=== PATIENT | male | born 1980 | race Caucasian/White ===

== ENCOUNTER 2019-03-14 08:28 | Day surgery (SDC) | payer BC, SELFPAY ==
--- NOTE | 2019-03-13 08:37 | PM.HPUD ---
H&P update H&P Update: DATE OF SURGERY/PROCEDURE: 03/13/19 DATE H&P PERFORMED: 03/13/19 PLANNED PROCEDURE: Operation Date: 03/14/19 11:45 Proposed Procedures p Knee Arthroscopy with medial meniscectomy 58218 M17.11(Right) - Wei Marvin MD Full H&P HPI: PRIMARY INDICATION/DIAGNOSIS FOR SURGICAL PROCEDURE: Medial meniscal tear PLANNED PROCEDURE: . Right medial meniscectomy, other indicated procedures. HPI: The patient is a 38-year-old male who presents with complaints of pain in his right knee. He describes originally injuring his knee 2 years ago. He describes the pain moderate in intensity he describes associated giving way catching and locking. He underwent previous knee arthroscopy in April 2014 with persistent symptoms. He reportedly was scheduled for a second arthroscopy past year which was canceled due to changes in his insurance. He is tried corticosteroid injections and anti-inflammatories without improvement. ROS: ROS: Patient denies any fevers or chills. He has no chest pain shortness of breath or palpitations. He has no cough or congestion. He has no numbness or tingling in his lower extremities. Medications/Allergies: Current Medications: Prilosec Pertinent Exam Findings: OTHER PERTINENT EXAM FINDINGS: HEAD: Normocephalic/atraumatic. NECK: Soft supple nontender. HEART: Normal heart sounds, regular rhythm. CHEST: Clear to auscultation. ABDOMEN: Soft nontender nondistended. On examination the patient's right knee he has medial joint line tenderness. His motion is from 0 to 120 degrees. His cruciate collateral ligaments are stable. Pertinent Data: PERTINENT DATA: An MRI report of the right knee was reviewed dated 07/13/2018. The patient has full-thickness cartilage focal areas of loss over the medial femoral condyle. He has severe patellofemoral arthritis. He has a abnormal appearance of the medial meniscus consistent with previous meniscectomy or progressive degenerative tearing. A&P Assessment and plan (1) Osteoarthritis of right knee: The patient has been counseled as to the limited expectation with arthroscopy for osteoarthritis. I told him in some occasions for focal defects a microfracture chondroplasty could be entertained. Oftentimes patellofemoral arthritis treatments are symptomatic. Status: Acute Code(s): M17.11 - Unilateral primary osteoarthritis, right knee (2) Status post medial meniscectomy of right knee: I do not have previous operative reports. The possibility of continued meniscal tearing cannot be excluded. We will proceed with diagnostic arthroscopy to better evaluate the meniscus and offer potential treatment. Previous indications and risks have been discussed and the patient understands these and agrees to proceed Status: Acute Code(s): Z98.890 - Other specified postprocedural states
[2019-03-13 15:13] VITALS: BMI 36.3
[2019-03-14] VITALS (8 sets, daily range): BP systolic 121–164; BP diastolic 75–91; PULSE 76–98; RESP 14–19; TEMP 36.2–36.6; O2SAT 95–98
[2019-03-14] MEDS: sodium chloride 0.9% 1,000 ML 30 ML IV (09:59)
--- NOTE | 2019-03-14 10:23 | ANES.PREANES ---
Pre-Anesthetic Assessment Pre-Anesthetic Assessment: Height/Weight: Height 1.92 m Weight 133.81 kg Temp Pulse Resp BP Pulse Ox 97.6 F 98 18 148/91 95 03/14/19 09:28 03/14/19 09:28 03/14/19 09:28 03/14/19 09:28 03/14/19 09:28 Preop Diagnosis: Right medial meniscal tear, osteoarthritis Proposed Procedure: Operation Date: 03/14/19 09:35 Proposed Procedures p Knee Arthroscopy with medial meniscectomy 80591 M17.11(Right) - Wei Marvin MD Familial anesthetic complications: none Was Beta Andrei taken within 24 hours: N/A Social: Social History: Alcohol (occasional) and No tobacco Comment: chews tobacco Exam: Pre-Anes Outpt Exam: alert, oriented x 3, clear to auscultation bilaterally and regular rate & rhythm Airway: Submandibular: WNL Cervical ROM: WNL MP: 1 Dentition: Full History/ROS: No significant complaints Pulmonary: Pulmonary: Sleep apnea CV/HEM: CV/HEM: None reported : : None reported Hepatic: Hepatic: None reported GI: GI: GERD (prilosec) Metabolic: Metabolic: Morbid obesity Musc/skel: Musc/skel: None reported Neuropsych: Neuropsych: None reported Anesthetic Plan: ASA status: II Anesthesia: General Risk of > 500 ml blood loss (7ml/kg in children): No Meds/Allergies Current Medications: Current Medications Generic Name Dose Route Start Last Admin Trade Name Freq PRN Reason Stop Dose Admin Sodium Chloride 1,000 mls @ 30 ml s/hr 03/14/19 09:15 03/14/19 09:59 Sodium Chloride 0.9% IV 03/15/19 09:14 30 mls/hr .Q24H COLEEN Administration Data Anesthesia Cardiac Studies: No Data to Display
--- NOTE | 2019-03-14 10:35 | PM.HPUD ---
H&P update H&P Update: DATE OF SURGERY/PROCEDURE: 03/14/19 DATE H&P PERFORMED: 03/13/19 H&P UPDATE INFORMATION: H&P completed within last 30 days PREOP DIAGNOSIS: Degenerative joint disease right knee, abnormal medial meniscal PRIMARY INDICATION FOR PROCEDURE: Continued pain right knee with abnormal medial meniscus PLANNED PROCEDURE: Operation Date: 03/14/19 09:35 Proposed Procedures p Knee Arthroscopy with medial meniscectomy 40625 M17.11(Right) - Wei Marvin MD Full H&P Medications/Allergies: Current Medications: Current Medications Generic Name Dose Route Start Last Admin Trade Name Freq PRN Reason Stop Dose Admin Sodium Chloride 1,000 mls @ 30 ml s/hr 03/14/19 09:15 03/14/19 09:59 Sodium Chloride 0.9% IV 03/15/19 09:14 30 mls/hr .Q24H COLEEN Administration
[2019-03-14] MEDS: morphine 4 mg/mL SDV 1 mL 8 MG IM (11:10)
--- NOTE | 2019-03-14 12:16 | SUR.PHASEI ---
1204- RECEIVED PATIENT IN PACU FROM OR VIA [facility]. RESP ARE EVEN AND NONLABORED. SIMPLE MASK APPLIED AT 6LPM, ORAL AIRWAY IN PLACE. SAT 98%. HE IS LETHARGIC. RLE IS WARM TO TOUCH WITH PPP. DRESSING DRY AND INTACT. NO S/S PAIN OR NAUSEA
--- NOTE | 2019-03-14 12:19 | SUR.PHASEI ---
1219- ORAL AIRWAY OUT, SIMPLE MASK AT 6LPM, SAT 97%
--- NOTE | 2019-03-14 12:24 | P.OP_ITS ---
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 There was marked thinning of the cartilage and exposed areas of subchondral bone. There is unstable peripheral flaps and fissures. Over the trochlea there was a large defect involving the majority of the trochlea with body exposed subchondral bone and unstable peripheral flaps and fissures. The lateral compartment was generally intact. Multiple small loose bodies were identified. Condition: stable Disposition: PACU Procedure: The patient was taken to the operating room and given 2 g of Ancef. He was given a general anesthesia. His knee was prepped and infiltrated with 30 cc of 0.5% Marcaine with epi and 10 mg of morphine. The knee was then prepped and draped in the usual fashion. The knee was entered through the standard inferior medial and inferior lateral portal. The diagnostic portion of the arthroscopy was performed. Initially multiple loose bodies were removed with the incisor shaver. Attention was then focused on the medial meniscus which was probed and found to be stable. Attention was then focused on the medial femoral condyle. Utilizing an incisor shaver unstable flaps and fissures were removed from the periphery of the exposed defect. A [employer] Werewolf probe was then used to debride the base and margins leaving the previously area of large area of exposed previously stable. Attention was then focused on the trochlea. There was dense of central loss there with exposed subchondral bone that did not particular benefit from debridement but there was a rim of unstable tissue peripherally consisting of flaps and fissures were abraded back with the incisor shaver and [employer] Werewolf probe. There is a small central area about the patella which was debrided with the werewolf as well with much less ext ensive cartilage loss identified there. The knee was irrigated with saline. Portals were closed with 3-0 Prolene. Sterile dressings were applied. The patient was extubated and taken recovery room in stable condition.
[2019-03-14] MEDS: oxyCODONE 5 mg IR Tab/Cap PO (13:04)
--- NOTE | 2019-03-14 14:23 | SUR.PHASEII ---
PATIENT IS DRESSED AND WAITING FOR CRUTCHES
== END 2019-03-14 15:00 | disposition home or self-care (01) ==
PROVIDERS: PCP Nurse Practitioner Family; Visit Provider Orthopaedic Surgery
PROC: (CPT 29870; principal; 2019-03-14 09:35)
DX: M17.11 Unilateral primary osteoarthritis, right knee (principal); F17.221 Nicotine dependence, chewing tobacco, in remission; G47.30 Sleep apnea, unspecified; E66.01 Morbid (severe) obesity due to excess calories; Z68.36 Body mass index [BMI] 36.0-36.9, adult
CPT/HCPCS: 29877; 12345; J0330; J0690; J1100; J2001; J2270; J2405; J2704; J3010; J3490; J7030

== ENCOUNTER 2021-01-30 15:28 | Emergency (ER) | payer OTHER, SELFPAY ==
[2021-01-30 15:43] VITALS: BP 135/81; PULSE 75; RESP 16; TEMP 36.4; O2SAT 97
[2021-01-30 20:12] LABS: Basophils # 0.1 10^3/uL (0.0-0.1); Basophils % 0.9 %; Eosinophils # 0.2 10^3/uL (0.0-0.8); Eosinophils % 3.1 %; Hematocrit 44.4 % (42.0-52.0); Hemoglobin 15.3 g/dL (11.7-16.6); Lymphocytes # 3.2 10^3/uL (0.8-4.8); Lymphocytes % 42.2 %; Mean Corpuscular HGB Conc 34.5 g/dL (30.0-36.0); Mean Corpuscular Hemoglobin 29.8 pg (28.0-34.0); Mean Corpuscular Volume 86.4 fl (80-94); Mean Platelet Volume 11.5 fL (7.4-10.4); Monocytes # 0.5 10^3/uL (0.2-0.9); Monocytes % 6.6 %; Neutrophils # 3.51 10^3/uL (1.8-7.7); Neutrophils % 47.1 %; Nucleated Red Blood Cells % 0 %; Platelet Count 184 10^3/cmm (130-400); Red Blood Count 5.14 10^6/uL (4.1-5.3); Red Cell Distribution Width 12.1 % (12.1-15.1); White Blood Count 7.5 10^3/uL (4.0-10.0)
[2021-01-30 20:25] LABS: Alanine Aminotransferase 55 U/L (0-41); Albumin Level 4.3 g/dL (3.5-5.2); Alkaline Phosphatase 77 IU/L (40-130); Anion Gap 18.3 (5-19); Aspartate Amino Transferase 36 U/L (0-40); Blood Urea Nitrogen 13 mg/dL (6-20); Carbon Dioxide 21 mmol/L (22-29); Chloride 105 mmol/L (98-107); Globulin 2.1 g/dL (1.3-4.6); Glomerular Filtration Rate 82.8 mL/min (90-130); Glucose 132 mg/dL (65-115); Lipase 21 U/L (13-60); Osmolality Calculated 292 mOsm/kg (285-295); Potassium 4.3 mmol/L (3.5-5.1); Sodium 140 mmol/L (136-145); Total Bilirubin 0.3 mg/dL (0.15-1.2); Total Protein 6.4 g/dL (6.6-8.7)
--- NOTE | 2021-01-30 20:56 | CTR_ITS ---
PROCEDURE INFORMATION: Exam: CT Abdomen And Pelvis With Contrast Exam date and time: 01/30/2021 8:56 PM Age: 40 years old Clinical indication: Abdominal pain; Localized; Right lower quadrant (rlq); Additional info: Rlq, rmq pain, dx with inlammed appendix at another er today, iv and oral per surgeon TECHNIQUE: Imaging protocol: Computed tomography of the abdomen and pelvis with contrast. Radiation optimization: All CT scans at this facility use at least one of these dose optimization techniques: automated exposure control; mA and/or kV adjustment per patient size (includes targeted exams where dose is matched to clinical indication); or iterative reconstruction. Contrast material: OMNI 300; Contrast volume: 95 ml; Contrast route: INTRAVENOUS (IV); COMPARISON: CT Abdomen/Pelvis Renal [id number] 12/11/2018 7:22 PM RADIATION DOSE METRICS: Total DLP (mGy-cm): 2140.65 FINDINGS: Lungs: Continued very small right lower lobe calcified granuloma along the right hemidiaphragm. Heart: Continued cardiac prominence. Still no pericardial effusion. Liver: No definite hepatic steatosis. No enhancing liver mass. Gallbladder and bile ducts: Continued absence of the gallbladder suggesting a cholecystectomy. Still no biliary ductal dilatation. Pancreas: Continued slight fatty infiltration of the otherwise unremarkable pancreas. Spleen: Still no splenomegaly. Adrenal glands: Still no adrenal mass. Kidneys and ureters: Still no hydronephrosis or apparent renal mass. Stomach and bowel: No apparent interval disease of the GI tract. Appendix: Continued normal appendix. Intraperitoneal space: Still no free air. Vasculature: Continued slight calcific plaque in the iliac arteries. Still no aortic aneurysm. Lymph nodes: Continued enlarged periportal node lymph nodes. No interval enlarged nodes. Urinary bladder: Excreted contrast filling the nondistended bladder. No mass or suggestion of wall thickening. Reproductive: Continued slight prostatic calcifications. No prostatic enlargement. Bones/joints: Old compression fractures again evident. Continued slight degeneration of a few discs. Soft tissues: Continued minimal bilateral inguinal hernias containing fat. No acute soft tissue finding. CT/CT abdomen pelvis w con* [id number] IMPRESSION: 1. No acute findings. Specifically, no appendicitis. 2. Continued cardiac prominence. Stable periportal adenopathy, possibly related to the apparent cholecystectomy. Other findings detailed above.
--- NOTE | 2021-01-30 21:07 | W.ED.ABDPA2 ---
Documented by User: [email or web address] Mao 01/31/21 01:41 HPI - Abdominal Pain General: Chief Complaint: Abdominal Pain Stated Complaint: R LOWER ABD PAIN Time Seen by Provider: 01/30/21 20:50 History of Present Illness: HPI narrative: Patient presents with complaint of right lower quadrant right middle quadrant pain today. Sudden onset while he was standing talking some he. Was seen in the ER at [facility] was diagnosed with inflamed appendix and increase amount of stool. Patient went saw his PCP ER at least talk to them and they recommend he come to the ER. Patient has had chills denies fever nausea and vomiting does have pain with movement right lower quadrant denies any injury. MD elicited complaint: abdominal pain Onset (ago): hour(s) Pain Consistency: constant Location: RUQ and RLQ Severity: mild Quality: stabbing and aching Radiation: RUQ Migration to: no migration Exacerbating factors: movement Relieving factors: nothing Associated Symptoms: Reports chills; Denies nausea and vomiting Review of Systems Const: Reports: chills Eyes: Denies: change in vision or blurry vision ENMT: Denies: throat pain or nasal congestion Card: Denies: chest pain or dyspnea on exertion Resp: Denies: dyspnea, productive cough or non-productive cough GI: Reports: abdominal pain; Denies: nausea or vomiting : Denies: difficulty urinating Musc: Denies: extremity pain Skin/Breast: Denies: rash Neuro: Denies: headache(s) Psych: Denies: anxiety or depression Loy/Lymph: Denies: easy bruising Physical Exam Const: COMMON NORMALS: no acute distress, average body habitus and patient oriented x3 HENMT: COMMON NORMALS: normocephalic HEAD & SCALP: normal to inspection and normocephalic FACE & SINUS: normal facial exam Eye: COMMON NORMALS: conjunctivae normal GENERAL EYE: appearance normal, both eyes and all related structures CONJUNCTIVA: Yes conjunctivae normal Neck/C-Spine: COMMON NORMALS: no JVD Chest: COMMONS NORMALS: normal inspection of the chest Resp: COMMON NORMALS: normal respiratory effort and clear to auscultation bilaterally AUSCULTATION: clear to auscultation bilaterally Cardio: COMMON NORMALS: no JVD, regular rate and regular rhythm RATE: regular rate RHYTHM: regular rhythm GI: INSPECTION: Yes normal to inspection AUSCULTATION: Yes Hypoactive bowel sounds present PALPATION: Yes Tenderness to palpation present (GI) (No rebound) Details: RLQ and RUQ Extremity: COMMON NORMALS: normal to inspection and full ROM Neuro: COMMON NORMALS: patient oriented x3 Course Vital Signs: Vital signs: Vital Signs Temperature 97.6 F 01/31/21 00:22 Pulse Rate 77 01/31/21 00:22 Respiratory Rate 16 01/31/21 00:22 Blood Pressure 140/67 01/31/21 00:22 Pulse Oximetry 98 01/31/21 00:22 MDM - Abdominal Pain MDM Narrative: Medical decision making narrative: Patient presents here with abdominal pain that started today while patient was working. Patient says he went to [facility] ER had a CT done was told that he had an inflamed appendix and was was sent home with a follow-up for PCP. Patient not placed on any medications. Patient presents here being sent by his PCP for work-up for acute appendectomy.. Patient's labs are presentation not consistent with appendicitis, Dr. Walls is here in the ER and he went and saw the patient, Dr. Zamora also called ER provider at [facility] and got the results of CT which showed enlarged liver but no appendix inflammation. And asked that we get a CT with oral contrast and IV contrast and notify him the results. Evaluation of CT and labs does not show that there is no acute appendicitis going on but constipation. Patient was given prescription for laxative discussed diet changes and patient is to follow-up with primary care provider Lab Data: Labs: Lab Results 01/30/21 01/30/21 01/30/21 19:59 19:59 22:07 WBC 7.5 10^3/uL 10^3/ uL (4.0-10.0) RBC 5.14 10^6/uL 10^6 /uL (4.1-5.3) Hgb 15.3 g/dL g/dL (11.7-16.6) Hct 44.4 % % (42.0-52.0) MCV 86.4 fl fl (80-94) MCH 29.8 pg pg (28.0-34.0) MCHC 34.5 g/dL g/dL (30.0-36.0) RDW 12.1 % % (12.1-15.1) Plt Count 184 10^3/cmm 10^3 /cmm (130-400) MPV 11.5 fL H fL (7.4-10.4) Neut % (Auto) 47.1 % % Lymph % (Auto) 42.2 % % [place] % (Auto) 6.6 % % Eos % (Auto) 3.1 % % Baso % (Auto) 0.9 % % Neut # (Auto) 3.51 10^3/uL 10^3 /uL (1.8-7.7) Lymph # (Auto) 3.2 10^3/uL 10^3/ uL (0.8-4.8) [place] # (Auto) 0.5 10^3/uL 10^3/ uL (0.2-0.9) Eos # (Auto) 0.2 10^3/uL 10^3/ uL (0.0-0.8) Baso # (Auto) 0.1 10^3/uL 10^3/ uL (0.0-0.1) Nucleated RBC % (a uto) 0 % % Nucleated RBCs # 0.0 /100WBC /100W BC Sodium 140 mmol/L mmol/L (136-145) Potassium 4.3 mmol/L mmol/L (3.5-5.1) Chloride 105 mmol/L mmol/L (98-107) Carbon Dioxide 21 mmol/L L mmol/ L (22-29) Anion Gap 18.3 (5-19) BUN 13 mg/dL mg/dL (6-20) Creatinine 1.0 mg/dL mg/dL (0.7-1.2) GFR Calculation 82.8 mL/min L mL/ min (90-130) Glucose 132 mg/dL H mg/dL (65-115) Calculated Osmolal ity 292 mOsm/kg mOsm/ kg (285-295) Calcium 9.0 mg/dL mg/dL (8.5-10.5) Total Bilirubin 0.3 mg/dL mg/dL (0.15-1.2) AST 36 U/L U/L (0-40) ALT 55 U/L H U/L (0-41) Alkaline Phosphata se 77 IU/L IU/L (40-130) Total Protein 6.4 g/dL L g/dL (6.6-8.7) Albumin 4.3 g/dL g/dL (3.5-5.2) Globulin 2.1 g/dL g/dL (1.3-4.6) Lipase 21 U/L U/L (13-60) Urine Color Yellow (Yellow) Urine Appearance Clear (CLEAR) Urine pH 5 (5-7) Ur Specific Gravit y 1.025 (1.005-1.030) Urine Protein Neg (Negative) Urine Glucose (UA) Norm (Normal) Urine Ketones Negative (Negative) Urine Blood Neg (Negative) Urine Nitrate Negative (Negative) Urine Bilirubin Neg (Negative) Urine Urobilinogen 1 mg/dL H mg/dL (Negative) Ur Leukocyte Melanie ase Negative (Negative) Discharge Plan Discharge Patient Disposition: Home Clinical Impression: Constipation Qualifiers: Constipation type: slow transit constipation Qualified Code(s): K59.01 - Slow transit constipation Abdominal pain Qualifiers: Abdominal location: right upper quadrant Qualified Code(s): R10.11 - Right upper quadrant pain Condition: Stable Prescriptions: New magnesium citrate Solution 240 ml PO DAILY PRN (Reason: constipation) 3 Days Qty: 296 RF: 0 No Action Prilosec 2 mg PO DAILY RF: 0 oxycodone 5 mg capsule 5 mg PO Q4H Qty: 40 RF: 0 Discharge Orders: Discharge ED (Routine); Ordered 01/31/21 Ordered By: Herman Rhodes Referrals: Talia Trotter FNP [Primary Care Provider] - Discharge Diet: As Directed Discharge Activity: Resume usual activity Patient Instructions: Constipation (ED), Abdominal Pain (ED) Activity Restrictions/Additional Instructions: Follow-up with medical provider as directed. Take medications as prescribed. Return to the ER or your medical provider if condition worsens. Please read and understand discharge instructions. If any questions ask please. High-fiber diet daily. Increase activity and drinking water. Use [id number] stool softeners and magnesium citrate. Follow-up your family medical provider. Coding Level of Care Code ED Primary Special Educator for Chg Fwd Exam Comprehensive Documented by User: Juvencio Estrada, 01/31/21 01:54 HPI - Abdominal Pain General: Chief Complaint: Abdominal Pain Stated Complaint: R LOWER ABD PAIN Time Seen by Provider: 01/30/21 20:50 Course Vital Signs: Vital signs: Vital Signs Temperature 97.6 F 01/31/21 00:22 Pulse Rate 77 01/31/21 00:22 Respiratory Rate 16 01/31/21 00:22 Blood Pressure 140/67 01/31/21 00:22 Pulse Oximetry 98 01/31/21 00:22 MDM - Abdominal Pain MDM Narrative: Medical decision making narrative: This patient was originally seen by GOSIA Rodriguez. I agree with his history, evaluation, and treatment. Lab Data: Labs: Lab Results 01/30/21 01/30/21 01/30/21 19:59 19:59 22:07 WBC 7.5 10^3/uL 10^3/ uL (4.0-10.0) RBC 5.14 10^6/uL 10^6 /uL (4.1-5.3) Hgb 15.3 g/dL g/dL (11.7-16.6) Hct 44.4 % % (42.0-52.0) MCV 86.4 fl fl (80-94) MCH 29.8 pg pg (28.0-34.0) MCHC 34.5 g/dL g/dL (30.0-36.0) RDW 12.1 % % (12.1-15.1) Plt Count 184 10^3/cmm 10^3 /cmm (130-400) MPV 11.5 fL H fL (7.4-10.4) Neut % (Auto) 47.1 % % Lymph % (Auto) 42.2 % % [place] % (Auto) 6.6 % % Eos % (Auto) 3.1 % % Baso % (Auto) 0.9 % % Neut # (Auto) 3.51 10^3/uL 10^3 /uL (1.8-7.7) Lymph # (Auto) 3.2 10^3/uL 10^3/ uL (0.8-4.8) [place] # (Auto) 0.5 10^3/uL 10^3/ uL (0.2-0.9) Eos # (Auto) 0.2 10^3/uL 10^3/ uL (0.0-0.8) Baso # (Auto) 0.1 10^3/uL 10^3/ uL (0.0-0.1) Nucleated RBC % (a uto) 0 % % Nucleated RBCs # 0.0 /100WBC /100W BC Sodium 140 mmol/L mmol/L (136-145) Potassium 4.3 mmol/L mmol/L (3.5-5.1) Chloride 105 mmol/L mmol/L (98-107) Carbon Dioxide 21 mmol/L L mmol/ L (22-29) Anion Gap 18.3 (5-19) BUN 13 mg/dL mg/dL (6-20) Creatinine 1.0 mg/dL mg/dL (0.7-1.2) GFR Calculation 82.8 mL/min L mL/ min (90-130) Glucose 132 mg/dL H mg/dL (65-115) Calculated Osmolal ity 292 mOsm/kg mOsm/ kg (285-295) Calcium 9.0 mg/dL mg/dL (8.5-10.5) Total Bilirubin 0.3 mg/dL mg/dL (0.15-1.2) AST 36 U/L U/L (0-40) ALT 55 U/L H U/L (0-41) Alkaline Phosphata se 77 IU/L IU/L (40-130) Total Protein 6.4 g/dL L g/dL (6.6-8.7) Albumin 4.3 g/dL g/dL (3.5-5.2) Globulin 2.1 g/dL g/dL (1.3-4.6) Lipase 21 U/L U/L (13-60) Urine Color Yellow (Yellow) Urine Appearance Clear (CLEAR) Urine pH 5 (5-7) Ur Specific Gravit y 1.025 (1.005-1.030) Urine Protein Neg (Negative) Urine Glucose (UA) Norm (Normal) Urine Ketones Negative (Negative) Urine Blood Neg (Negative) Urine Nitrate Negative (Negative) Urine Bilirubin Neg (Negative) Urine Urobilinogen 1 mg/dL H mg/dL (Negative) Ur Leukocyte Melanie ase Negative (Negative) Discharge Plan Discharge Patient Disposition: Home Clinical Impression: Constipation Qualifiers: Constipation type: slow transit constipation Qualified Code(s): K59.01 - Slow transit constipation Abdominal pain Qualifiers: Abdominal location: right upper quadrant Qualified Code(s): R10.11 - Right upper quadrant pain Condition: Stable Prescriptions: New magnesium citrate Solution 240 ml PO DAILY PRN (Reason: constipation) 3 Days Qty: 296 RF: 0 No Action Prilosec 2 mg PO DAILY RF: 0 oxycodone 5 mg capsule 5 mg PO Q4H Qty: 40 RF: 0 Discharge Orders: Discharge ED (Routine); Ordered 01/31/21 Ordered By: Herman Rhodes Referrals: Talia Trotter FNP [Primary Care Provider] - Discharge Diet: As Directed Discharge Activity: Resume usual activity Patient Instructions: Constipation (ED), Abdominal Pain (ED) Activity Restrictions/Additional Instructions: Follow-up with medical provider as directed. Take medications as prescribed. Return to the ER or your medical provider if condition worsens. Please read and understand discharge instructions. If any questions ask please. High-fiber diet daily. Increase activity and drinking water. Use [id number] stool softeners and magnesium citrate. Follow-up your family medical provider. Coding Level of Care Code ED Primary Special Educator for Chg Fwd Exam Comprehensive
--- NOTE | 2021-01-30 21:28 | PM.CONSULT ---
Providers/Reason For Consult Consulting Physician/Specialty*: shapera, surgery Reason for Consult*: appendicitis Primary Care Provider: GOSIA Gomez History of Present Illness History of Present Illness Vaibhav Hall is a 40 year old male who presents with sudden onset abdominal pain in the right mid to right lower quadrant. It occurred at 7:30 AM today. It was associated with nausea. There is no anorexia however. Patient denies fevers but does report subjective chills. Patient went to an outside ER where he obtained a CT scan. Apparently he was told that he had appendicitis. In spite of this he was discharged from the ER without any medication whatsoever. Because of this the patient presented to [facility]. He continues to report right lower quadrant abdominal pain. It is 7 out of 10 in intensity. Again there is no anorexia. At our hospital his vital signs are normal. Past medical history: Morbid obesity, hypercholesterolemia, cholecystitis. Past surgical history: Laparoscopic cholecystectomy. Colonoscopy 12 years ago with 5 polyps removed. Family history: Colon cancer in his mother in her 50s. Social history: Occasional tobacco and alcohol abuse, including tobacco chewing. Allergies: Denies. Patient works as a water safety instructor. I called the ER physician myself at the outside hospital where the patient came from. This was the [facility], at [place]. The ER physician read the radiologist report. There the report stated that the patient had an unremarkable appendix, fatty infiltration of the liver and no acute pathology process on the CT of the abdomen and pelvis. At that facility the patient's white blood cell count was also 6. Review of Systems General: Reports: 10 or more systems reviewed and unremarkable except in HPI and below Meds/Allergies Home Medications and Allergies Home Medications Medication Instructions Recorded Confirmed Last Taken Type Prilosec 2 mg PO DAILY 03/13/19 04/19/19 03/13/19 08:00 History oxycodone 5 mg PO Q4H #40 cap 03/14/19 04/19/19 Unknown Rx Allergies Allergy/AdvReac Type Severity Reaction Status Date / Time No Known Allergies Allergy Verified 01/30/21 15:46 Vitals/I&O/Wt Last Vital Signs Temp 97.6 F 01/30/21 15:43 Pulse 75 01/30/21 15:43 Resp 16 01/30/21 15:43 BP 135/81 01/30/21 15:43 Pulse Ox 97 01/30/21 15:43 Weight last 48 hrs Weight 380 lb Physical Exam Narrative: EXAM NARRATIVE: Head: Normocephalic atraumatic Eyes: No scleral icterus, normal conjugate gaze Skin: No jaundice, no exposed lesions Neuro: Follows commands moves all 4 extremities Psych: Cooperative, pleasant gentleman. General: Morbidly obese gentleman appearing stated age. MSK: No muscle wasting appreciated, normal tone. Abdomen: Right lower quadrant tenderness. No tympany no rigidity no rebound tenderness. No groin hernias are appreciated on physical examination. Lungs: Normal symmetric expansion of the chest wall, no accessory muscle use. A&P Additional A&P Information 40-year-old gentleman with a history of prior laparoscopic cholecystitis, fatty infiltration of the liver (NAFLD), hypercholesterolemia and morbid obesity presenting with abdominal pain right lower quadrant sudden onset 7 out of 10 with no white count. Patient also has no anorexia. But does have nausea. This is an unclear picture as far as appendicitis is concerned. A CT scan of the abdomen and pelvis was obtained at the outside hospital but was read as negative for appendicitis but that the colon was full of stool. CT scan of the abdomen pelvis with IV and oral contrast should be obtained now to assess for appendicitis. If this again shows no evidence of appendicitis then the patient can be discharged with a bowel regimen. If it does show appendicitis then IV antibiotics, n.p.o. and laparoscopic appendectomy will be indicated. This treatment algorithm was explained to the patient and his who is at bedside they expressed understanding and agreed to proceed in this fashion. Given the patient's family history of colon cancer and the fact that his colon is full of stool and the fact that he abuses tobacco and is approaching the age at which his mother developed colon cancer, I strongly counseled the patient that he needs an urgent outpatient colonoscopy to ensure he does not develop a colonic tumor, as apparently he had 5 colonic polyps removed 12 years ago. Thank you for giving me the privilege in caring for this patient. Coding Level of Care Code Acute Representative for Clarence Hancock
[2021-01-30] MEDS: iohexol 300 mg/mL 50 mL Btl PO (21:46)
[2021-01-30 22:13] LABS: Add Urine Microscopic? NO; Charge for UA Resulting for Rev
[2021-01-30 22:18] LABS: Bilirubin Urine Neg (Negative); Blood Urine Neg (Negative); Glucose Urine UA Norm (Normal); Ketones Urine Negative (Negative); Leukocyte Esterase Urine Negative (Negative); Nitrate Urine Negative (Negative); Protein Urine Neg (Negative); Specific Gravity, Urine 1.025 (1.005-1.030); Urine Appearance Clear (CLEAR); Urine Color Yellow (Yellow); Urobilinogen Urine 1 mg/dL (Negative); pH Urine 5 (5-7)
[2021-01-30] MEDS: iohexol 300 mg/mL 100 mL Btl IV (22:52)
[2021-01-31 00:22] VITALS: BP 140/67; PULSE 77; RESP 16; TEMP 36.4; O2SAT 98
== END 2021-01-31 00:24 | disposition home or self-care (01) ==
PROVIDERS: Emergency Medicine; Emergency Provider Nurse Practitioner Family; PCP Nurse Practitioner Family
DX: K59.01 Slow transit constipation (principal); R10.11 Right upper quadrant pain
CPT/HCPCS: 12345; 74177; 80053; 81003; 83690; 85025; 99283; Q9967

== ENCOUNTER → 2021-04-24 10:19 | Outpatient (BNVA) | payer OTHER, SELFPAY | PROVIDERS: PCP Nurse Practitioner Family; Visit Provider Surgery | DX: Z20.822 Contact with and (suspected) exposure to COVID-19 (principal) | CPT/HCPCS: 87635 ==

== ENCOUNTER 2021-06-10 19:46 | Emergency (ER) | payer OTHER, SELFPAY ==
[2021-06-10 19:49] VITALS: BP 157/87; PULSE 94; RESP 20; TEMP 36.2; O2SAT 98; BMI 34.7
--- NOTE | 2021-06-10 19:55 | XRR_ITS ---
PROCEDURE INFORMATION: Exam: XR Left Wrist Exam date and time: 06/10/2021 8:11 PM Age: 41 years old Clinical indication: Pain; Wrist; Left; Additional info: Eval for injury TECHNIQUE: Imaging protocol: XR Left wrist. Views: 3 or more views. COMPARISON: No relevant prior studies available. FINDINGS: Bones/joints: Bones appear intact and normally aligned. Joint spaces preserved. Soft tissues: Questionable superficial soft tissue swelling over the lateral aspect of the distal radius. XR/XR wrist LT min 3V* [id number] IMPRESSION: No evidence of fracture or dislocation.
[2021-06-10] MEDS: acetaminophen 500 mg Tablet PO (20:05)
[2021-06-10 20:16] VITALS: BP 157/87; PULSE 94; RESP 18; O2SAT 98
--- NOTE | 2021-06-10 20:16 | ED_ITS ---
HPI - Extremity Problem General: Chief complaint: Extremity Injury, Upper Stated complaint: Swollen LT arm Time Seen by Provider: 06/10/21 19:55 PFSH ED PFSH: Social History Smoking and tobacco status: current some day smoker (occasionally) Course Vital Signs: Vital signs: Vital Signs Temperature 97.2 F L 06/10/21 19:49 Pulse Rate 94 06/10/21 19:49 Respiratory Rate 20 H 06/10/21 19:49 Blood Pressure 157/87 06/10/21 19:49 Pulse Oximetry 98 06/10/21 19:49 Discharge Plan Discharge Condition: Stable Prescriptions: No Action rosuvastatin [Crestor] 10 mg tablet 10 mg PO DAILY 0RF paroxetine HCl [Paxil] 10 mg tablet 10 mg PO DAILY 0RF montelukast [Singulair] 10 mg tablet 10 mg PO DAILY 0RF loratadine [Claritin] 10 mg tablet 10 mg PO DAILY 0RF amoxicillin-pot clavulanate 500-125 mg tablet 1 tab PO BID 0RF Prilosec 20 mg PO DAILY 0RF Referrals: Talia Trotter FNP [Primary Care Provider] - Coding Level of Care Code ED Reed Or Wind Instrument Repairer for Clarence Hancock
--- NOTE | 2021-06-10 20:29 | ED_ITS ---
HPI - General Adult General: Chief complaint: Extremity Injury, Upper Stated complaint: Swollen LT arm Time Seen by Provider: 06/10/21 19:55 History of Present Illness: Patient is a 41M presenting to the emergency room for concerns of left wrist and forearm pain. Patient was catching a softball from the pitching machine when he missed and the ball hit his left wrist. Patient denies any other injuries. Patient is complaining of significant pain in the left wrist/forearm area. He denies any anticoagulation no other focal complaints at this time Onset: 1 hr ago Duration: ongoing Location:streets Severity:moderate Associated symptoms: Deny chest pain, dyspnea, nausea, rash, palpitations or vomiting Review of Systems Const: Denies: fever(s) or chills Eyes: Denies: change in vision ENMT: Denies: mouth pain Card: Denies: chest pain or palpitations Resp: Denies: dyspnea or non-productive cough GI: Denies: abdominal pain, nausea, vomiting or diarrhea : Denies: dysuria Musc: Reports: extremity pain (+L wrist/forearm pain) Skin/Breast: Denies: rash or new lesions Neuro: Denies: weakness in extremities Psych: Reports: other (Normal mood) Loy/Lymph: Denies: easy bruising PFSH ED PFSH: Medical History Depression Social History Smoking and tobacco status: current some day smoker (occasionally) Alcohol intake: never Substance/Drug Use: never Physical Exam Const: COMMON NORMALS: alert HENMT: COMMON NORMALS: atraumatic HEAD & SCALP: atraumatic MOUTH: moist mucous membranes not abnormal Eye: COMMON NORMALS: EOMs intact bilaterally and conjunctivae normal CONJUNCTIVA: Yes conjunctivae normal Neck/C-Spine: COMMON NORMALS: full ROM and supple Resp: COMMON NORMALS: normal respiratory effort and clear to auscultation bilaterally AUSCULTATION: clear to auscultation bilaterally Cardio: COMMON NORMALS: regular rate RATE: regular rate GI: COMMON NORMALS: Soft to palpation and non-tender PALPATION: Yes Soft to palpation Extremity: OTHER: + Left distal radial tenderness palpation, cap refill less than 3 seconds in the left extremity, sensation intact in the left median/ulnar/radial distribution, 2+ radial pulses in the left hand, patient able to perform okay thumbs up and fist on the left hand. Neuro: SENSORIUM/ORIENTATION: Yes alert MOTOR EXAM: No Abnormal motor strength present and Other motor observations present (no focal motor deficits) Psych: COMMON NORMALS: speech normal SPEECH: Yes normal speech MOOD & AFFECT: Yes euthymic mood Course Vital Signs: Vital signs: Vital Signs Temperature 97.2 F L 06/10/21 19:49 Pulse Rate 94 06/10/21 20:16 Respiratory Rate 18 06/10/21 20:16 Blood Pressure 157/87 06/10/21 20:16 Pulse Oximetry 98 06/10/21 20:16 MDM - General Adult Medical Decision Making 41-year-old male presenting to the emergency room with complaints of left forearm and wrist pain. On exam, patient has distal radial tenderness palpation. X-rays negative for any acute fractures currently. Patient is placed in a Velcro splint for comfort. Patient will follow-up with primary care provider or come back to the emergency room 1 week for repeat x-ray if he is having significant pain still as this can be an occult fracture. Rx tylenol and menthol cream PRN pain Disposition: Discharge. Patient counseled regarding diagnostic impression, treatment plan. Patient given ED strict return precautions to return for continuation, worsening, or development of new symptoms. Instructed to f/u w/ PCP regarding symptoms today. Patient verbalized understanding. Lab Data Radiology Impressions Wrist X-Ray 06/10/21 19:55 IMPRESSION: No evidence of fracture or dislocation. Imaging Data Other Imaging: Radiologist's impression: [address] [address] XRay Report Signed Patient: Vaibhav Hall Unit #: [id number] : 1980 Age/Sex: 41 / M ADM Date: 06/10/21 Loc: ER Room/Bed: Attending Dr: Ordering Provider/Ordering MD: Jordan Blue MD Date of Service: 06/10/21 Procedure(s): XR wrist LT min 3V* [id number] Accession Number(s): [id number] Report Number: [id number] PROCEDURE INFORMATION: Exam: XR Left Wrist Exam date and time: 06/10/2021 8:11 PM Age: 41 years old Clinical indication: Pain; Wrist; Left; Additional info: Eval for injury TECHNIQUE: Imaging protocol: XR Left wrist. Views: 3 or more views. COMPARISON: No relevant prior studies available. FINDINGS: Bones/joints: Bones appear intact and normally aligned. Joint spaces preserved. Soft tissues: Questionable superficial soft tissue swelling over the lateral aspect of the distal radius. XR/XR wrist LT min 3V* [id number] IMPRESSION: No evidence of fracture or dislocation. ? Dictated By: Enrike Amador MD Signed By: Enrike Amador MD Signed Date/Time: 06/10/212101 DD/ 10 Discharge Plan Discharge Patient Disposition: Home Clinical Impression: Arm pain Condition: Stable Prescriptions: New acetaminophen 500 mg tablet 500 mg PO Q6H PRN (Reason: pain) 5 Days Qty: 20 0RF Biofreeze (menthol) 5 % gel 1 ea topical BID PRN (Reason: pain) 10 Days Qty: 1 0RF No Action rosuvastatin [Crestor] 10 mg tablet 10 mg PO DAILY 0RF paroxetine HCl [Paxil] 10 mg tablet 10 mg PO DAILY 0RF montelukast [Singulair] 10 mg tablet 10 mg PO DAILY 0RF loratadine [Claritin] 10 mg tablet 10 mg PO DAILY 0RF amoxicillin-pot clavulanate 500-125 mg tablet 1 tab PO BID 0RF Prilosec 20 mg PO DAILY 0RF Discharge Orders: Discharge ED (Routine); Ordered 06/10/21 Ordered By: Jordan Blue Referrals: Talia Trotter FNP [Primary Care Provider] - Discharge Diet: Advance as tolerated Discharge Activity: Increase activity as tolerated Patient Instructions: Arm Pain (ED) Activity Restrictions/Additional Instructions: Please repeat x-ray in 1 week if you still having significant pain as this could be signs of an occult fracture. Please for your splint for comfort. Take pain medicine as instructed. Come back to the emergency room have any new or concerning complaints Coding Level of Care Code ED Shirt Ironer Supervisor for Clarence Hancock Exam Comprehensive
== END 2021-06-10 21:23 | disposition home or self-care (01) ==
PROVIDERS: Emergency Provider Emergency Medicine; PCP Nurse Practitioner Family
DX: M79.602 Pain in left arm (principal); F17.210 Nicotine dependence, cigarettes, uncomplicated
CPT/HCPCS: 73110; 99283

== ENCOUNTER → 2021-06-26 08:27 | Outpatient (BNVA) | payer OTHER, SELFPAY | PROVIDERS: PCP Nurse Practitioner Family; Referring Provider Nurse Practitioner Family; Visit Provider Nurse Practitioner Family | DX: S52.512A Displaced fracture of left radial styloid process, initial encounter for closed fracture (principal); M25.532 Pain in left wrist; X58.XXXA Exposure to other specified factors, initial encounter | CPT/HCPCS: 73110 ==

== ENCOUNTER 2022-03-19 21:52 | Emergency (ER) | payer BC, SELFPAY ==
--- NOTE | 2022-03-19 22:05 | XRR_ITS ---
PROCEDURE INFORMATION: Exam: XR Right Shoulder Exam date and time: 03/19/2022 11:09 PM Age: 42 years old Clinical indication: Injury or trauma; Fall; Blunt trauma (contusions or hematomas); Shoulder; Right; Additional info: Injury, PT states he falls all the time. His shoulder is not what is hurting, its TECHNIQUE: Imaging protocol: Radiologic exam of the Right shoulder. Views: 2 or more views. COMPARISON: No relevant prior studies available. FINDINGS: Bones/joints: Normal. Soft tissues: Normal. XR/XR shoulder RT min 2V* [id number] IMPRESSION: No acute findings.
[2022-03-19 22:33] VITALS: BP 118/80; PULSE 85; RESP 18; TEMP 36.8; O2SAT 95; BMI 35.9
--- NOTE | 2022-03-19 23:08 | W.ED.EXTPRO ---
HPI - Extremity Problem General: Chief complaint: Extremity Injury, Upper Stated complaint: right shoulder injury post fall Time Seen by Provider: 03/19/22 22:06 Source: patient Mode of arrival: ambulatory Limitations: no limitations History of Present Illness: 42-year-old male states he slipped on the ice earlier today and fell on his right shoulder states this happened earlier in the day and has been having right shoulder pain since and is worse with palpation and movement improved with rest he denies any other injuries from his fall denies hitting his head denies any neck pain. Associated symptoms: Deny chest pain, fever(s) or rash Review of Systems Const: Denies: fever(s), chills, body aches or change in appetite Eyes: Denies: blurry vision or eye discomfort ENMT: Denies: throat pain or dental pain Card: Denies: chest pain Resp: Denies: dyspnea GI: Denies: abdominal pain, nausea, vomiting or diarrhea : Denies: dysuria Musc: Reports: extremity pain; Denies: neck pain or back pain Skin/Breast: Denies: rash Neuro: Denies: headache(s) Psych: Denies: depression Loy/Lymph: Denies: easy bruising All/Imm: Denies: urticaria PFSH ED PFSH: Medical History Depression Social History Smoking and tobacco status: current some day smoker (occasionally) Alcohol intake: never Physical Exam Const: COMMON NORMALS: no acute distress, patient oriented x3 and healthy appearing HENMT: COMMON NORMALS: normocephalic and atraumatic HEAD & SCALP: normocephalic and atraumatic Eye: COMMON NORMALS: Equal, round and reactive pupils present and EOMs intact bilaterally PUPIL: Yes Equal, round and reactive pupils present Neck/C-Spine: COMMON NORMALS: full ROM and supple Chest: COMMONS NORMALS: normal inspection of the chest and normal palpation of entire chest wall Resp: COMMON NORMALS: normal respiratory effort, No retractions, No use of accessory muscles and clear to auscultation bilaterally AUSCULTATION: clear to auscultation bilaterally Cardio: COMMON NORMALS: regular rate, regular rhythm and No murmurs present (Cardio) RATE: regular rate RHYTHM: regular rhythm GI: COMMON NORMALS: Normal to inspection, nondistended, normoactive bowel sounds present, Soft to palpation, non-tender and no masses PALPATION: Yes Soft to palpation Extremity: COMMON NORMALS: full ROM NARRATIVE EXTREMITY EXAM: Tenderness to right shoulder no obvious deformity Neuro: COMMON NORMALS: patient oriented x3, moves all extremities and no focal motor deficits Psych: COMMON NORMALS: mental status grossly normal, Normal thought process present and cooperative THOUGHT PROCESS: Normal thought process present Skin: COMMON NORMALS: no rashes or lesions noted and no wounds GENERAL SKIN EXAM: no rashes or lesions noted Course Vital Signs: Vital signs: Vital Signs Temperature 98.3 F 03/19/22 22:33 Pulse Rate 87 03/19/22 23:17 Respiratory Rate 18 03/19/22 23:17 Blood Pressure 140/87 03/19/22 23:17 Pulse Oximetry 98 03/19/22 23:17 Oxygen Delivery Me thod 03/19/22 23:17 MDM - Extremity (Nontraumatic) Medical Decision Making Patient presents here with a shoulder strain from a fall he has no fractures he is able to have full range of motion he does have some tenderness likely from a contusion or sprain he is stable for discharge he is to ice we will place him on Naprosyn he is to follow-up with his PCP. Lab Data Radiology Impressions Shoulder X-Ray 03/19/22 22:05 IMPRESSION: No acute findings. Discharge Plan Discharge Patient Disposition: Home Clinical Impression: Sprain of shoulder, right Condition: Stable Prescriptions: New Naprosyn 500 mg tablet 500 mg PO BID PRN (Reason: pain) Qty: 20 0RF No Action rosuvastatin [Crestor] 10 mg tablet 10 mg PO DAILY paroxetine HCl [Paxil] 10 mg tablet 10 mg PO DAILY montelukast [Singulair] 10 mg tablet 10 mg PO DAILY loratadine [Claritin] 10 mg tablet 10 mg PO DAILY (DME) Cock Up Splint See Rx Instructions .Route .MEDSUPPLY Qty: 1 0RF Rx Instructions: As directed amoxicillin-pot clavulanate 500-125 mg tablet 1 tab PO BID Prilosec 20 mg PO DAILY Discharge Orders: Discharge ED (Routine); Ordered 03/19/22 Ordered By: Yg Landers Referrals: Talia Trotter FNP [Primary Care Provider] - 1-3 days Discharge Diet: Advance as tolerated Discharge Activity: Resume usual activity Patient Instructions: Shoulder Sprain (ED) Coding Level of Care Code ED Mobile Service Rv Technician for Clarence Fwd Exam Comprehensive
[2022-03-19] MEDS: HYDROcodone-acetaminophen 5-325 mg Tablet 1 TAB PO (23:14)
[2022-03-19 23:17] VITALS: BP 140/87; PULSE 87; RESP 18; O2SAT 98
== END 2022-03-19 23:55 | disposition home or self-care (01) ==
PROVIDERS: Emergency Provider Emergency Medicine; PCP Nurse Practitioner Family
DX: S43.401A Unspecified sprain of right shoulder joint, initial encounter (principal); F17.210 Nicotine dependence, cigarettes, uncomplicated; W00.0XXA Fall on same level due to ice and snow, initial encounter
CPT/HCPCS: 73030; 99283

== ENCOUNTER 2023-08-31 19:18 | Emergency (ER) | payer BC, SELFPAY ==
[2023-08-31 19:31] VITALS: BP 136/82; PULSE 97; RESP 16; TEMP 37.2; O2SAT 97; BMI 36.2
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
[2023-08-31 22:02] VITALS: BP 131/80; PULSE 91; RESP 16; TEMP 37.2; O2SAT 98
== END 2023-08-31 21:50 | disposition home or self-care (01) ==
PROVIDERS: Emergency Provider Emergency Medicine; PCP Nurse Practitioner Family
DX: S00.01XA Abrasion of scalp, initial encounter (principal); Z72.0 Tobacco use; V49.40XA Driver injured in collision with unspecified motor vehicles in traffic accident, initial encounter
CPT/HCPCS: 70450; 72125; 73080; 73110; 73130; 99284

== ENCOUNTER → 2023-09-19 09:20 | Outpatient (BNVA) | payer BC, SELFPAY | PROVIDERS: PCP Nurse Practitioner Family; Visit Provider Specialist | DX: Z98.890 Other specified postprocedural states (principal); M17.31 Unilateral post-traumatic osteoarthritis, right knee | CPT/HCPCS: 73560; 73565 ==

== ENCOUNTER 2023-10-24 20:13 | Emergency (ER) | payer BC, SELFPAY ==
[2023-10-24 20:13] VITALS: BP 169/111; PULSE 93; RESP 18; TEMP 36.8; O2SAT 96; BMI 36.2
--- NOTE | 2023-10-24 20:18 | CTR_ITS ---
PROCEDURE INFORMATION: Exam: CT Head Without Contrast Exam date and time: 10/24/2023 8:45 PM Age: 43 years old Clinical indication: Pain; Headache; Additional info: LLOYD TECHNIQUE: Imaging protocol: Computed tomography of the head without contrast. Radiation optimization: All CT scans at this facility use at least one of these dose optimization techniques: automated exposure control; mA and/or kV adjustment per patient size (includes targeted exams where dose is matched to clinical indication); or iterative reconstruction. COMPARISON: CT head wo con* [id number] 08/31/2023 8:27 PM RADIATION DOSE METRICS: Total DLP (mGy-cm): 1144 FINDINGS: Brain: No hemorrhage. Periventricular and subcortical white matter hypodensities likely represent chronic small vessel ischemic changes. No mass effect. Cerebral ventricles: No ventriculomegaly. Paranasal sinuses: Similar complete opacification of the left maxillary sinus with mild osseous remodeling. Mastoid air cells: Visualized mastoid air cells are well aerated. Bones: No acute fracture. Soft tissues: Unremarkable. CT/CT head wo con* [id number] IMPRESSION: 1. No acute intracranial abnormality. 2. Chronic left maxillary sinusitis.
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
[2023-10-24] MEDS: sodium chloride 0.9% 1,000 ML 999 ML IV (20:32)
[2023-10-24] MEDS: labetalol 5 mg/mL SDV 20mL 10 MG IVP (20:32)
[2023-10-24] MEDS: ketorolac 30 mg/mL INJ IVP (20:35)
[2023-10-24 20:46] LABS: Alanine Aminotransferase 49 U/L (0-41); Albumin Level 4.4 g/dL (3.5-5.2); Alkaline Phosphatase 68 U/L (40-130); Aspartate Amino Transferase 33 U/L (0-40); Blood Urea Nitrogen 12 mg/dL (6-20); Calcium 9.4 mg/dL (8.5-10.5); Carbon Dioxide 28 mmol/L (22-29); Chloride 97 mmol/L (98-107); Globulin 2.6 g/dL (1.3-4.6); Glomerular Filtration Rate 73.1 mL/min (90-130); Glucose 144 mg/dL (65-115); Osmolality Calculated 286 mOsm/kg (285-295); Sodium 137 mmol/L (136-145); Total Bilirubin 0.7 mg/dL (0.15-1.2)
[2023-10-24 20:48] LABS: Basophils # 0.1 10^3/uL (0.0-0.1); Basophils % 0.8 %; Eosinophils # 0.2 10^3/uL (0.0-0.8); Eosinophils % 1.5 %; Hematocrit 45.7 % (37-53); Lymphocytes # 2.1 10^3/uL (0.8-4.8); Lymphocytes % 21.3 %; Mean Corpuscular HGB Conc 33.7 g/dL (30-55); Mean Corpuscular Hemoglobin 29.7 pg (27-33); Mean Corpuscular Volume 88.2 fl (82-101); Mean Platelet Volume 11.1 fL (7.4-10.4); Monocytes # 0.6 10^3/uL (0.2-0.9); Monocytes % 6.4 %; Neutrophils % 69.8 %; Nucleated Red Blood Cells % 0 %; Platelet Count 237 10^3/cmm (157-399); Red Blood Count 5.18 10^6/uL (3.85-5.65); Red Cell Distribution Width 13.1 % (12.1-15.1); White Blood Count 9.89 10^3/uL (3.29-11.43)
[2023-10-24 20:49] LABS: Anion Gap 16.2 (5-19); Potassium 4.2 mmol/L (3.5-5.1)
[2023-10-24 21:38] VITALS: BP 137/89; PULSE 93; RESP 18; O2SAT 95
[2023-10-24 22:00] VITALS: BP 123/80; PULSE 92; RESP 18; O2SAT 95
== END 2023-10-24 22:02 | disposition home or self-care (01) ==
PROVIDERS: Emergency Provider Emergency Medicine; PCP Nurse Practitioner Family
DX: R51.9 Headache, unspecified (principal)
CPT/HCPCS: 70450; 80053; 85025; 96361; 96374; 96375; 99285; J1885; J3490; J7030

== ENCOUNTER 2024-08-01 12:22 | Emergency (ER) | payer SELFPAY ==
[2024-08-01 12:39] VITALS: BP 145/79; PULSE 89; RESP 18; TEMP 36.6; O2SAT 95; BMI 36.2
--- NOTE | 2024-08-01 13:00 | XR_ITS ---
WS: [id number] Left hand, 3 views, 08/01/2024 Clinical Data: L 4th finger Comparison: Left wrist, 08/31/2023 Findings: No fractures or dislocations are seen. The soft tissues are unremarkable. The joint spaces are normal XR/XR hand LT min 3V* [id number] Impression: Negative left hand.
--- NOTE | 2024-08-01 13:29 | W.ED.WOUNDLC ---
HPI - Wound/Laceration General: Chief Complaint: Wound/Laceration Stated Complaint: ring finger wound Time Seen by Provider: 08/01/24 12:39 History of Present Illness: 44-year-old male who is working and got his finger caught on a ladder as he was climbing and he slipped. He has an injury to the finger on the palmar surface of the left fourth digit from where the ring dug into the finger. It did not completely degloved he was able to get it off prior to arrival he is unsure of his last tetanus Related Data Home Medications ?Medication ?Instructions ?Recorded ?Confirmed paroxetine HCl 10 mg tablet (Paxil) 10 mg PO DAILY 02/16/21 08/01/24 omeprazole 20 mg capsule,delayed 20 mg PO DAILY 08/01/24 08/01/24 release semaglutide 1 mg/dose (4 mg/3 mL) 0.5 mg SUBCUT Q7D 08/01/24 08/01/24 subcutaneous pen injector (Ozempic) Previous Rx's ?Medication ?Instructions ?Recorded Cock Up Splint #1 ea 06/26/21 Allergies Allergy/AdvReac Type Severity Reaction Status Date / Time No Known Allergies Allergy Verified 09/19/23 10:05 [facility] ED PFS: Medical History Depression Social History Smoking and tobacco/nicotine status: never used tobacco/nicotine Alcohol intake: never Substance/Drug Use: never Physical Exam Extremity: OTHER: Examination of the left fourth finger patient has a avulsion type laceration is no gaping. He has good flexion against resistance. Medially and over the palmar surface of the finger he has slight decrease sensation prior to anesthesia being applied Procedures Laceration Laceration 1: Site: hand Side (If applicable): left Size (cm): 2 Description: linear Depth: simple, single layer Pre-repair: wound explored and irrigated extensively Skin layer closed with: nylon Size (cm): 5-0 Number of sutures: 3 Technique: simple, interrupted Nerve Block Nerve Block 1: Time out performed: Yes Local Anesthetic: lidocaine 1% Amount of anesthesia used (mL): 3 Side: left Nerve Blocks: digital (4th finger) Procedure Successful: Yes Patient Tolerated Procedure: well Complications: none Course Vital Signs: Vital signs: Vital Signs Temperature 97.8 F 08/01/24 12:39 Pulse Rate 81 08/01/24 14:31 Respiratory Rate 18 08/01/24 12:39 Blood Pressure 145/79 08/01/24 14:31 Pulse Oximetry 97 08/01/24 14:31 Oxygen Delivery Me thod Room Air 08/01/24 12:39 MDM - Wound/Laceration Medical Decision Making 3) sutures apply with good approximation of wound edges. Apply topical antibiotic ointment to wound remove sutures in 10 days with primary care doctor Lab Data Radiology Impressions Hand X-Ray 08/01/24 13:00 Impression: Negative left hand. All radiology interpretation(s) finalized by discharge Discharge Plan Discharge Patient Disposition: Home Clinical Impression: Laceration Condition: Stable Prescriptions: No Action paroxetine HCl [Paxil] 10 mg tablet 10 mg PO DAILY (DME) Cock Up Splint See Rx Instructions .Route .MEDSUPPLY Qty: 1 0RF Rx Instructions: As directed omeprazole 20 mg capsule,delayed release(DR/EC) 20 mg PO DAILY Ozempic 1 mg/dose (4 mg/3 mL) pen injector 0.5 mg SUBCUT Q7D Discharge Orders: Discharge ED (Routine); Ordered 08/01/24 Ordered By: Choco Cuellar Referrals: Talia Trotter FNP [Primary Care Provider, Unknown] Discharge Diet: Usual diet Discharge Activity: Increase activity as tolerated Patient Instructions: Opioid Safety, Pain Management Activity Restrictions/Additional Instructions: Thank you for choosing [facility] for your healthcare needs today. It is very important that you follow up as instructed or that you return to the Emergency Department should you have concerns or if your condition changes or worsens in any way. You were seen in the emergency room after a ring injury to your left fourth finger. It is full-thickness laceration required 3 sutures to approximate the skin edges. Apply [id number] topical antibiotic ointment to the wound once daily keep covered when working may leave exposed to air when you are not working. Sutures should come out in 7 to 10 days. Your tetanus was updated while you were here today as well. If there are signs of infection recheck with primary care. Print Language: [place] Coding Level of Care Code ED Graphic Design Teacher for Clarence Hancock
[2024-08-01] MEDS: lidocaine 1% 10 ML INJ IM (13:53)
[2024-08-01 14:31] VITALS: BP 145/79; PULSE 81; O2SAT 97
[2024-08-01] MEDS: tetanus-dipt-pertussis 0.5 mL SDV IM (14:35)
== END 2024-08-01 14:37 | disposition home or self-care (01) ==
PROVIDERS: Emergency Provider Family Medicine; PCP Nurse Practitioner Family
DX: S61.215A Laceration without foreign body of left ring finger without damage to nail, initial encounter (principal); X58.XXXA Exposure to other specified factors, initial encounter
CPT/HCPCS: 12001; 73130; 90715; 99283; J9999